=== PATIENT | male | born 1950 | race Caucasian/White ===

== ENCOUNTER 2017-03-25 10:53 | Observation (INO) | payer OTHER ==
[2017-03-25] MEDS ORDERED: NS 1,000 ML IV ONE (11:01)
--- NOTE | 2017-03-25 11:20 | CPEKG ---
Heart Rate: 86 RR Interval: 698 P-R Interval: 120 QRSD Interval: 86 QT Interval: 356 QTC Interval: 426 P Meigs: 68 QRS Meigs: 23 T Wave Meigs: 200 EKG Severity - BORDERLINE ECG - EKG Impression: SINUS RHYTHM EKG Impression: PROBABLE LEFT ATRIAL ABNORMALITY Electronically Signed By: Aidan John 25-Mar-2017 17:37:52
--- NOTE | 2017-03-25 11:29 | PDHPUP ---
History & Physical Update H&P update statement: This history and physical update is based on an assessment of the patient which was completed after admission or registration (within 24 hours), but prior to the surgery/procedure. H&P update: H&P reviewed & patient examined, no change in patient's condition since H&P completed
[2017-03-25 11:35] LABS: % IMMATURE GRANULYOCYTES 0.2 % (0.0-1.1); ABSOLUTE IMMATURE GRANULOCYTES 0.01 10^3/uL (0.00-0.10); ADD DIFF? NO; ADD MORPH? NO; ADD SCAN? NO; ATYPICAL LYMPHOCYTE FLAG 10 (0-99); FRAGMENT RBC FLAG 0 (0-99); HEMATOCRIT 47.6 % (40.0-51.0); HEMOGLOBIN 16.7 g/dL (13.7-17.5); LEFT SHIFT FLG 0 (0-99); LIPEMIA HEMOLYSIS FLAG 90 (0-99); MEAN CELL HEMOGLOBIN 31.3 pg (27.9-34.1); MEAN CELL HEMOGLOBIN CONCENTR. 35.1 g/dL (32.4-36.7); MEAN CELL VOLUME 89.3 fL (81.5-99.8); MEAN PLATELET VOLUME 9.5 fL (8.7-11.7); PLATELET CLUMPS FLAG 0 (0-99); PLATELET COUNT 206 10^3/uL (150-400); RED BLOOD CELL COUNT 5.33 10^6/uL (4.40-6.38); RED CELL DISTRIBUTION WIDTH 13.2 % (11.5-15.2)
[2017-03-25 11:44] LABS: INR 1.13 (0.83-1.16); PROTIME(PATIENT) 14.4 SEC (12.0-15.0)
[2017-03-25 11:45] LABS: APTT 35.4 SEC (23.0-38.0)
[2017-03-25 11:52] LABS: ANION GAP 12 mEq/L (8-16); CALCIUM 9.3 mg/dL (8.5-10.4); CARBON DIOXIDE 26 mEq/l (22-31); CHLORIDE 105 mEq/L (97-110); CREATININE 1.1 mg/dL (0.7-1.3); GLOMERULAR FILTRATION RATE > 60; GLUCOSE 104 mg/dL (70-100); MAGNESIUM 2.1 mg/dL (1.6-2.3); POTASSIUM 4.5 mEq/L (3.5-5.2); SODIUM 143 mEq/L (134-144)
[2017-03-25] MEDS ORDERED: MIDAZOLAM 2 MG/2 ML VIAL ONE (11:54)
[2017-03-25] MEDS ORDERED: HEPARIN 10,000 UNIT/10 ML MDV ONE (12:00)
[2017-03-25] MEDS ORDERED: LIDOCAINE 1% 300 MG/30 ML SDV ONE (12:00)
[2017-03-25] MEDS ORDERED: BUPIVACAINE 0.5% 30 ML SDV ONE (12:00)
[2017-03-25] MEDS ORDERED: ISOPROTERENOL HCL/D5W 0.2 MG/50 ML BAG IV ONE (12:00)
[2017-03-25] MEDS ORDERED: PROPOFOL/EMULSION 500 MG/50 ML BOTTLE IV ONE (12:43)
[2017-03-25] MEDS ORDERED: fentaNYL 100 MCG/2 ML INJ ONE (12:43)
[2017-03-25] MEDS ORDERED: PROPOFOL 200 MG/20 ML VIAL ONE ×2 (12:54→14:42)
[2017-03-25] MEDS ORDERED: ROCURONIUM 50 MG/5 ML VIAL ONE ×2 (12:56→14:30)
[2017-03-25] MEDS ORDERED: SUGAMMADEX SODIUM 200 MG/2 ML VIAL IVP ONE (12:56)
[2017-03-25] MEDS ORDERED: ONDANSETRON 4 MG/2 ML VIAL ONE (12:56)
[2017-03-25] MEDS ORDERED: RANITIDINE 50 MG/2 ML VIAL ONE (12:56)
[2017-03-25] MEDS ORDERED: METOCLOPRAMIDE 10 MG/2 ML VIAL ONE (12:56)
[2017-03-25] MEDS ORDERED: fentaNYL 100 MCG/2 ML INJ IVP PRN (13:04)
[2017-03-25] MEDS ORDERED: ONDANSETRON 4 MG/2 ML VIAL IVP PRN ×2 (13:04→16:20)
[2017-03-25] MEDS ORDERED: DEXAMETHASONE 4 MG/ML VIAL IVP PRN (13:04)
[2017-03-25] MEDS ORDERED: METOCLOPRAMIDE 10 MG/2 ML VIAL IVP PRN (13:04)
[2017-03-25] MEDS ORDERED: ALBUTEROL 3 ML DEYVIAL IH PRN (13:04)
[2017-03-25] MEDS ORDERED: NALOXONE HCL 0.4 MG/ML INJ IVP PRN (13:04)
[2017-03-25] MEDS ORDERED: PROMETHAZINE HCL 25 MG/ML INJ IVP PRN (13:04)
[2017-03-25] MEDS ORDERED: LR 500 ML IV PRN (13:04)
[2017-03-25] MEDS ORDERED: MEPERIDINE 25 MG/ML SYR IVP PRN (13:04)
--- NOTE | 2017-03-25 13:04 | PDANEPAE ---
ANE Past Medical History - Cardiovascular History Cardiovascular History Comment: uncontrolled HTN, untreated - Pulmonary History Hx Sleep Apnea: No ANE Review of Systems Review of Systems: ANE Patient History - Allergies Allergies/Adverse Reactions: No Known Allergies Allergy (Unverified 03/19/17 09:51) - Home Medications Home Medications: NK [No Known Home Meds] 03/19/17 [Last Taken Unknown] - Smoking Hx Smoking Status: Former smoker ANE Labs/Vital Signs - Labs Result Diagrams: 03/25/17 11:28 03/25/17 11:28 - Vital Signs Height: 172.72 cm Weight: 86.183 kg ANE Physical Exam - Airway Mallampati Score: Class 1 Mouth exam: normal dental/mouth exam - Pulmonary Pulmonary: no respiratory distress, no rales or rhonchi, clear to auscultation - Cardiovascular Cardiovascular: regular rate and rhythym, no murmur, rub, or gallop, systolic murmur - ASA Status ASA Status: III ANE Anesthesia Plan Anesthesia Plan: general endotracheal anesthesia
[2017-03-25] MEDS ORDERED: HEPARIN/DEXTROSE 25,000 UNIT/500 ML BAG ONE (13:59)
[2017-03-25] MEDS ORDERED: ENALAPRILAT DIHYDRATE 1.25 MG/ML VIAL ONE (15:49)
[2017-03-25] MEDS ORDERED: PROTAMINE SULFATE 50 MG/5 ML VIAL IVP ONE (16:05)
[2017-03-25] MEDS ORDERED: OXYCODONE/APAP 5/325 TAB PO PRN (16:20)
[2017-03-25] MEDS ORDERED: ACETAMINOPHEN 325 MG TAB PO PRN (16:20)
--- NOTE | 2017-03-25 17:01 | EPPROC ---
Electrophysiology Procedure Note: Procedures performed: 89462-62 EP evaluation with RA/RV/LA pace/record, with arrhythmia induction 42105-11 EP evaluation with RA/RV pace record, insert/reposition catheter, with arrhythmia induction 86590 Intracardiac catheter ablation, SVT arrhythmogenic focus 97297 3D mapping Fluoroscopy 37028 Intracardiac echocardiogram 83869-26 Transseptal puncture INDICATION: This is a 66 yr old with episodes of palpitations going on for years which he could terminate with carotid sinus massage. However the episodes were making his dizzy and he had WPW on the EKG. 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 He wanted to get assessed for his palpitations and chose RF ablation as treatment modality for his palpitation. Hence it was decided to evaluate with EP study and possible ablation PROCEDURE: Catheters and anesthesia: The patient arrived in the Electrophysiology Laboratory in the fasting state. The right clavicular region, right groin, and left groin area were prepped and draped in the usual sterile manner. Anesthesiologist administered general anesthesia. Appropriate non-invasive blood pressure, pulse oximetry and end- tidal CO2 monitoring was established. All catheters were placed percutaneously using the modified Seldinger technique , and advanced into position under fluoroscopic guidance. One #6 F decapolar catheter was placed in the CS and a CRD2 catheter was placed in the His position. Programmed stimulation of the right ventricle and coronary sinus (left atrium) was performed. This demonstrated the presence of an accessory pathway. However, AV steven conduction could not be determined since patient continued conduction over the pathway down to 240ms. WHile placing ablation catheter for mapping SVT was induced at 205bpm with antegrade conduction over the AV node and retrograde conduction over accessory pathway. Mapping was performed during A pacing looking for earliest V and then during SVT looking for earliest A. Early A signals were ntoed in the Cs os posteriorly and ablation at 20W was performed there. However, pt continued to have antegrade conduction. Further mapping during A pacing revealed that the pathway may indeed be on the left side. In preparation for ablation of the left accessory pathway a transeptal puncture was performed under fluoroscopic and hemodynamic guidance. Intracardiac echocardiography was used during the procedure. Mean left atrial pressure was 25 mm Hg mmHg. A SL1 sheath was inserted into the left atrium. The patient was administered IV heparin bolus and IV heparin continuous infusion prior to the transseptal puncture and the activated clotting time was maintained ~ 300 seconds during the remainder of the procedure. One #7 Jamaican mapping catheter with a 4 mm tip electrode and a sensory for the Wkiob2K mapping system was inserted into the SL1 sheath and advanced to the left atrium. Mapping was performed during A pacing. Early V signals were noted in the left septal side around 7 o'clock position. Later catheter was changed to D curve catheter. RF#1 was delivered to this site. RF#1 blocked conduction in the accessory pathway after 2 seconds of initiation of ablation. Additional RF 2 was delivered slightly anterior and posterior to RF1 site. Programmed stimulation from the RA, CS, right and RV during the baseline state post ablation and during infusion of isoproterenol 2 mcg/min confirmed that there was no conduction over the left septal accessory pathway and no orthodromic AVRT could be induced. The catheters were removed. Long sheath was exchanged for short sheath. Protamine was administered. The patient was transferred to the cardiovascular holding area in stable condition. Vascular access sheaths were removed in the holding area. There were no apparent complications. Results: Rapidly conducting accessory pathway on the left septal region about 7 o'clock position. Easily inducible SVT with antegrade conduction over the AV node and retrograde conduction over accessory pathway Successful ablation of the pathway CONCLUSIONS: 1. A single left septal accessory pathway, which exhibited conduction in the antegrade and retrograde directions. 2. 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 3. Successful ablation of the left septal accessory pathway with elimination of AV reentrant tachycardia. 4. No apparent complications.
[2017-03-25 18:01] LABS: ANION GAP 12 mEq/L (8-16); CALCIUM 7.8 mg/dL (8.5-10.4); CARBON DIOXIDE 22 mEq/l (22-31); CHLORIDE 106 mEq/L (97-110); CREATININE 1.2 mg/dL (0.7-1.3); GLOMERULAR FILTRATION RATE > 60; GLUCOSE 100 mg/dL (70-100); MAGNESIUM 1.9 mg/dL (1.6-2.3); POTASSIUM 4.5 mEq/L (3.5-5.2); SODIUM 140 mEq/L (134-144)
--- NOTE | 2017-03-25 18:31 | POSTANESTH ---
Post Anesthetic Evaluation Cardiovascular Status: Normal, Stable Respiratory Status: Normal, Stable Level of Consciousness/Mental Status: Can Participate in Eval Pain Control: Adequate, Prn Tx Ordered Nausea/Vomiting Control: Adequate, Prn Tx Ordered Complications Possibly Related to Anesthesia: None Noted
[2017-03-26 05:12] LABS: % IMMATURE GRANULYOCYTES 0.1 % (0.0-1.1); ABSOLUTE IMMATURE GRANULOCYTES 0.01 10^3/uL (0.00-0.10); ADD DIFF? NO; ADD MORPH? NO; ADD SCAN? NO; ATYPICAL LYMPHOCYTE FLAG 0 (0-99); FRAGMENT RBC FLAG 0 (0-99); HEMATOCRIT 41.9 % (40.0-51.0); HEMOGLOBIN 14.2 g/dL (13.7-17.5); LEFT SHIFT FLG 0 (0-99); LIPEMIA HEMOLYSIS FLAG 90 (0-99); MEAN CELL HEMOGLOBIN 31.3 pg (27.9-34.1); MEAN CELL HEMOGLOBIN CONCENTR. 33.9 g/dL (32.4-36.7); MEAN CELL VOLUME 92.5 fL (81.5-99.8); MEAN PLATELET VOLUME 10.2 fL (8.7-11.7); PLATELET CLUMPS FLAG 20 (0-99); PLATELET COUNT 179 10^3/uL (150-400); RED BLOOD CELL COUNT 4.53 10^6/uL (4.40-6.38); RED CELL DISTRIBUTION WIDTH 13.4 % (11.5-15.2)
[2017-03-26 05:20] LABS: INR 1.18 (0.83-1.16)
[2017-03-26 05:33] LABS: ANION GAP 12 mEq/L (8-16); CALCIUM 8.2 mg/dL (8.5-10.4); CARBON DIOXIDE 22 mEq/l (22-31); CHLORIDE 107 mEq/L (97-110); CREATININE 1.2 mg/dL (0.7-1.3); GLOMERULAR FILTRATION RATE > 60; GLUCOSE 81 mg/dL (70-100); POTASSIUM 4.3 mEq/L (3.5-5.2); SODIUM 141 mEq/L (134-144)
[2017-03-26 05:45] LABS: CREATINE KINASE-MB FRACTION 3.58 ng/mL (0.00-3.19)
[2017-03-26 05:49] LABS: TROPONIN I 0.867 ng/mL (0.000-0.034)
[2017-03-26 06:05] LABS: CK-MB INTERPRETATION NEGATIVE (NEGATIVE)
[2017-03-26 08:23] VITALS: RESP 18; TEMP 98.1
--- NOTE | 2017-03-26 08:32 | CPEKG ---
Heart Rate: 92 RR Interval: 652 P-R Interval: 128 QRSD Interval: 88 QT Interval: 364 QTC Interval: 451 P Eden: 64 QRS Eden: 61 T Wave Eden: -75 EKG Severity - ABNORMAL ECG - EKG Impression: SINUS RHYTHM EKG Impression: ATRIAL PREMATURE COMPLEX EKG Impression: LEFT ATRIAL ABNORMALITY EKG Impression: ABNORMAL T, CONSIDER ISCHEMIA, INFERIOR LEADS Electronically Signed By: Aidan John 26-Mar-2017 15:56:35
[2017-03-26] MEDS ORDERED: LISINOPRIL 10 MG TAB PO SCH (09:00)
[2017-03-26] MEDS ORDERED: ASPIRIN 325 MG TAB PO SCH (09:00)
[2017-03-26 11:39] VITALS: PULSE 72; O2SAT 96
[2017-03-26 12:35] VITALS: BP 160/82
--- NOTE | 2017-03-26 13:11 | ECHO ---
[email or web address] [address] [address] Main: [phone] Fax: Transthoracic Echocardiogram Name: DUTCH CRAIG MR#: [id number] Study Date: 03/26/2017 Study Time: 08:31 AM Date of : 1950 Age: 66 year(s) Height: 172.7 cm (68 in.) Weight: 86.18 kg (190 lb.) BSA: 2 m2 Gender: Male Examination: Echo Indication: Post Ablation Image Quality: Contrast: Requested by: Ramesh Bullock BP: 170 mmHg/98 mmHg Heart Rate: Rhythm: Indication: Post Ablation Procedure Staff Charge Rn: Rodney Chaudhary Reading Physician: Lauri Cerna Requesting Provider: Conclusions: Normal size left ventricle. Normal global systolic LV function. Normal size right ventricle. Mild aortic cusp calcification is noted. Mild aortic valve regurgitation is present. No pericardial effusion. Measurements: Chambers Valvular Assessment AV/MV Valvular Assessment TV/PV Normal Normal Normal Name Value Range Name Value Range Name Value Range Ao Johanna (MM): 3.1 cm (2.2 cm-3.7 AV Vmax: 1.62 m/s (1 m/s-1.7 PV Vmax: 1.30 m/s (0.6 m/s-0.9 cm) m/s) m/s) IVSd (2D): 0.9 cm (0.6 cm-1.1 AV maxP mmHg ( - ) PV PGmax: 7 mmHg ( - ) cm) LVOT Vmax: 1.22 m/s (0.7 m/s-1.1 LVDd (2D): 4.3 cm (4.2 cm-5.9 m/s) cm) AR (PHT): 876 ms ( - ) LVDs (2D): 2.3 cm (2.1 cm-4 MV E Vmax: 0.82 m/s ( - ) cm) MV A Vmax: 0.70 m/s ( - ) LVPWd (2D): 0.9 cm (0.6 cm-1 MV E/A: 1.17 ( - ) cm) LVEF (2D): 77 (>=54 %) Continued Measurements: Chambers Valvular Assessment AV/MV Name Value Name Value LADs Lon.2 cm MV E/E' Septal: 10.50 LA Area: 17.7 cm2 MV E/E' Lateral: 6.90 LA Volume: 48 ml AR Vmax: 3.07 cm/s Patient: DUTCH CRAIG Study Date: 03/26/2017 Page 1 of 2 08:31 AM LA Volume Index: 24.0 ml/m2 Findings: Left Ventricle: Normal size left ventricle. Normal global systolic LV function. EF is 77 %. No regional wall motion abnormality. Right Ventricle: Normal size right ventricle. Normal RV function. Left Atrium: The left atrium is normal in size. Right Atrium: The right atrium is normal in size. Mitral Valve: The mitral valve is normal in appearance and function. There is no mitral valve regurgitation. Aortic Valve: Mild aortic cusp calcification is noted. The aortic valve is tri-leaflet. Mild aortic valve regurgitation is present. Tricuspid Valve: The tricuspid valve is normal in appearance and function. Pulmonic Valve: The pulmonic valve is normal in appearance and function. Aorta: The aorta is normal. Pericardium: No pericardial effusion. (No Signature Object) Patient: DUTCH CRAIG Study Date: 03/26/2017 Page 2 of 2 08:31 AM [id number]
--- NOTE | 2017-03-26 16:49 | ASDISCHSUM ---
Discharge Information Plan Status:Home with No Needs Medically Cleared to Leave:03/25/2017 Discharge Date:03/26/2017 01:22 PM D/C Disposition: ADT D/C Disposition:Home, Routine, Self-Care Projected Discharge Date:03/26/2017 12:00 AM Transportation at D/C: Discharge Delay Reason: Follow-Up Date:03/26/2017 12:00 AM Discharge Slot: Final Diagnosis: Placement Information Patient Contact Information Contact Name:KENAN Relationship:Friend Address: Work Phone: City: [facility] Phone: State/Bookmate Code: Email: Financial Information Financial Class: Primary Plan Desc:MEDICARE OUTPATIENT Primary Plan Number:[id number] Secondary Plan Desc:[employer] P[employer] HMO OPEN ACC LOCAL Secondary Plan Number:[id number] Assessment Information Intervention Information
--- NOTE | 2017-03-29 09:10 | GDS ---
[f rep st] DISCHARGE SUMMARY ADMIT DIAGNOSES: 1. Supraventricular tachycardia. 2. Pnyob-Vidaobsko-Extuv. 3. Planned ablation therapy. DISCHARGE DIAGNOSIS: 1. Status post successful supraventricular tachycardia ablation. 2. Supraventricular tachycardia. 3. Hvqiw-Wmubyytjs-Ngyla. HOSPITAL COURSE: This gentleman was seen by Dr. Bullock with episodes of palpitations that have gone on for years. This would terminate with carotid sinus massage. Recently, he has been having episodes causing dizziness, and WPW was seen on EKG. Options were discussed, and it was determined that his b est choice of treatment would be RF ablation for treatment of the palpitation episodes. He was taken to the EP lab on 03/25/2017, where Dr. Bullock was able to isolate and perform successful SVT ablation. He has done well since this time. He was taken to the PCU for overnight observation, where he has done well. He has been up ambulating. He has had no dizziness, lightheadedness, or chest pain post procedure. At this time, he currently is stable. ALLERGIES: He has no known allergies. DISCHARGE MEDICATIONS: He will go home on aspirin 325 mg daily, lisinopril 10 mg daily, Tylenol 325 mg to 650 mg every 4 hours as needed for pain, not to exceed 3 g daily. IMAGING: Echocardiogram on day of discharge, 03/26/2017, normal systolic function. Mild aortic cusp calcification noted. Mild aortic valve regurgitation present. No pericardial effusion. EKG on 02/2017 shows a sinus rhythm, atrial premature complex inferior lead T-wave inversion which was prese nt prior to the procedure. DISCHARGE PLAN: 1. He will be discharged home with followup with Dr. Bullock on 03/31/2017 at 11:45 a.m. 2. Groin precautions were reviewed. He understands no heavy lifting, pushing, pulling greater than 10 pounds for 7 days. Avoid bearing down causing pressure to the groin site. Should site bleed, hol d continuous pressure and go to the nearest emergency room. 3. At this time, he currently is stable for discharge. /[id number]/MODL
== END 2017-03-26 13:22 | disposition home or self-care (01) ==
LOC: FCATH 10:53 → F2W 14:18
PROVIDERS: ADMIT Internal Medicine Cardiovascular Disease; ATTEND Internal Medicine Cardiovascular Disease
DX: I47.1 Supraventricular tachycardia (principal); I45.6 Pre-excitation syndrome; I10 Essential (primary) hypertension
CPT/HCPCS: 93005; 93306; 93613; 93621; 93623; 93653; 93662; C1730; C1732; C1759; C1893; J1644; J2250; J2405; J2704; J2720; J2765; J2780; J3010